=== PATIENT | male | born 1995 | race Caucasian/White ===

== ENCOUNTER 2017-04-27 19:36 | Emergency (ER) | payer OTHER ==
[~2017-04-27] VITALS: Ht 182.9 cm; Wt 104.3 kg
[2017-04-27 19:36] VITALS: BP 140/78
[2017-04-27] MEDS ORDERED: LIDOCAINE 2% 20 ML VIAL. IJ ONE (20:15)
[2017-04-27] MEDS ORDERED: IBUP800T19 PO (21:11)
--- NOTE | 2017-04-27 21:11 | PHYS DOC ---
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 He is right- handed. The patient was playing football, he caught the football, another player tried to grab the football away from him and got a hold of his finger, he felt and heard a "pop". He did not fall. He denies other injury. The patient is right-handed. The patient works in the [employer]. The patient denies chronic medical problems. Review of Systems Review of Systems Constitutional: Denies fever or chills [] Musculoskeletal: Denies back pain or joint pain other than right finger Current Medications Current Medications Current Medications Medications (Trade) Dose Ordered Sig/Dante Start Time Stop Time Status Last Admin Dose Admin Lidocaine HCl 20 ml 1X ONCE 04/27/17 20:15 04/27/17 20:16 DC 04/27/17 20:15 20 ML Allergies Allergies Allergies Coded Allergies Type Severity Reaction Last Updated Verified No Known Drug Allergies 04/27/17 No Physical Exam Physical Exam Constitutional: Well developed, well nourished, no acute distress, non-toxic appearance. Alert, mentating normally, appropriate, no acute distress. HENT: Normocephalic, atraumatic, bilateral external ears normal, nose normal. [] Eyes: conjunctiva normal, no discharge. [] Neck: Normal range of motion, no stridor. [] Extremities: Right hand: There is a deformity of the fourth finger. There is no opening in the skin. Range of motion is limited by deformity. Distal neurovascular intact, the finger is warm with good color. Neurologic: Alert and oriented X 3, normal motor function, no focal deficits noted. [] EKG EKG [] Radiology/Procedures Radiology/Procedures Three-view x-ray of the right hand/ring finger read by me. There is a dislocation of the PIP joint without fracture identified. Post reduction three-view x-ray of the right ring finger. Read by me. Satisfactory reduction of the PIP joint without fracture identified.[] Procedure: Reduction of right ring finger PIP dislocation I explained the procedure to the patient, who is agreeable. The skin was cleaned with an alcohol pad. Lidocaine 2% plain was infiltrated at the proximal aspect of the finger to perform a digital block. I proximally 5 mL total was used. The digital block was allowed to set up for about 20 minutes. The digital block was successful and the finger was numb. Gentle traction on the distal finger resulted in easily reducing the PIP dislocation. Post reduction exam revealed that the flexor and extensor tendons were operating normally. There is no significant amount of laxity of the collateral ligaments. The ring finger was yamil taped by ED nursing staff to the middle finger. Course & Med Decision Making Course & Med Decision Making Pertinent Labs and Imaging studies reviewed. (See chart for details) 21-year-old right-handed male presented with dislocation of the PIP joint of the right fourth finger, without fracture. The dislocation was reduced under digital block in the ED. Patient tolerated the procedure well. Postreduction films revealed satisfactory reduction. See Instructions for plan. [] Dragon Disclaimer Dragon Disclaimer This chart was dictated in whole or in part using Voice Recognition software in a busy, high-work load, and often noisy Emergency Department environment. It may contain unintended and wholly unrecognized errors or omissions. Departure Departure: Impression: Primary Impression: Dislocation of finger, interphalangeal joint, right, closed Disposition: 01 HOME, SELF-CARE Condition: IMPROVED Referrals: SHRUTI KELLER (PCP) Patient Instructions: Finger Dislocation, [id number] Additional Instructions: We will splint the finger by taping it to its yamil, keep it taped at all times until you are rechecked by a doctor in the clinic. Then, as directed. Ice 15-20 minutes out of every 1-2 hours for swelling. If needed for pain, ibuprofen as directed. Follow-up in 2-3 days in primary care clinic for recheck and repeat examination of the ligaments. Scripts Ibuprofen (IBUPROFEN) 800 Mg Tablet 1 TAB PO TID Y for PAIN, #30 TAB Prov: RIVER LOSEN MD 04/27/17 RIVER OLSEN MD Apr 27, 2017 21:11
[2017-04-27] MEDS ORDERED: IBUPROFEN 600 MG TABLET. PO ONE (21:15)
--- NOTE | 2017-04-28 08:12 | RAD ---
Right ring finger, 04/27/2017, 9:15 PM: History: Postreduction evaluation Comparison is made to hand radiographs from earlier in the day. The previously seen dislocation at the PIP joint has been reduced. No fracture is identified. There is mild soft tissue swelling. IMPRESSION: Satisfactory reduction of the right ring finger dislocation.
--- NOTE | 2017-04-28 08:14 | RAD ---
Right hand, 3 views, 04/27/2017: History: Hand injury, finger deformity There is posterior dislocation of the ring finger at the PIP joint level. No associated fracture is evident. No other abnormality is seen. IMPRESSION: Posterior dislocation of the right ring finger at the PIP joint.
== END 2017-04-27 21:20 | disposition home or self-care (01) ==
LOC: ER 19:36
DX: S63.284A Dislocation of proximal interphalangeal joint of right ring finger, initial encounter (principal); W21.01XA Struck by football, initial encounter; Y93.61 Activity, american tackle football; Y92.89 Other specified places as the place of occurrence of the external cause; Y99.8 Other external cause status
CPT/HCPCS: 26770; 73130; 73140; 99284-25; J2001